=== PATIENT | female | born 1990 | race Caucasian/White ===

== ENCOUNTER 2019-03-09 08:54 | Emergency (ER) | payer OTHER ==
[~2019-03-09] VITALS: Ht 167.6 cm; Wt 70.3 kg
[2019-03-09 09:13] LABS: INFLUENZA A ANTIGEN Negative (Negative)
[2019-03-09] MEDS ORDERED: TAMIFLU75 MG PO (09:22)
[2019-03-09 09:26] VITALS: BP 123/85
== END 2019-03-09 09:30 | disposition home or self-care (01) ==
LOC: M.ERS 08:54
PROVIDERS: Emergency Medicine
DX: J45.909 Unspecified asthma, uncomplicated (principal); J11.1 Influenza due to unidentified influenza virus with other respiratory manifestations

== ENCOUNTER 2019-08-27 14:18 | Emergency (ER) | payer OTHER ==
[~2019-08-27] VITALS: Ht 167.6 cm; Wt 75.8 kg
[~2019-08-27 14:18] MED LIST: TAMIFLU75 MG PO
[2019-08-27 14:22] VITALS: BP 130/83
[2019-08-27] MEDS ORDERED: FLONASE 0.05%50 MCG NARES (14:25)
[2019-08-27] MEDS ORDERED: AMOXICILLIN 50500 MG PO (14:32)
== END 2019-08-27 14:35 | disposition home or self-care (01) ==
LOC: M.ERS 14:18
DX: K04.7 Periapical abscess without sinus (principal); J45.909 Unspecified asthma, uncomplicated